=== PATIENT | male | born 1945 | race Caucasian/White ===

== ENCOUNTER 2016-10-04 12:43 | Emergency (ER) | payer MEDICARE ==
[~2016-10-04 12:43] MED LIST: AMBIEN PO; AMOXICILLIN PO; ASPIRIN PO; ASPIRIN81 M2 PO; CIPRO PO; COUMADIN; COUMADIN PO; COUMADIN4 MG PO; CRESTOR; FLAGYL PO; IRON1 TA1 PO; IRON325 ( 651 PO; LIPITOR PO; LIPITOR40 MG PO; NORVASC; PERCOCET5/325 PO; VICODIN 5/500 T1 TAB PO; WARFARIN SODIUM6 MG PO; ZYLOPRIM; ZYLOPRIM100 MG PO
[2016-10-04 13:00] LABS: BASOPHIL# 0.1 X10e3 (0-0.3); BASOPHIL% 0.5 % (0-2.5); EOSINOPHIL% 0.2 % (0.0-7.0); HEMATOCRIT 39.1 % (38.0-50.0); HEMOGLOBIN 13.5 gm/dL (13.0-16.0); LYMPHOCYTE# 0.8 X10e3 (1.0-3.5); LYMPHOCYTE% 7.1 % (17.0-45.0); MEAN CELL VOLUME 90.8 FL (83-96); MEAN CORPUSCULAR HEMOGLOBIN 31.4 PG (28-34); MEAN CORPUSCULAR HGB CONC 34.5 g/dL (30-36); MEAN PLATELET VOLUME 6.2 FL (6.5-11.5); MONOCYTE# 0.7 X10e3 (0-1.0); MONOCYTE% 6.5 % (3.0-12.0); NEUTROPHIL# 9.5 X10e3 (1.5-7.1); NEUTROPHIL% 85.7 % (40-75); PLATELET COUNT 237 X10e3 (140-420); RED BLOOD COUNT 4.31 X10e (3.90-5.60); RED CELL DISTRIBUTION WIDTH 13.3 % (11.0-15.5); WHITE BLOOD COUNT 11.1 X10e3 (4.0-10.5)
[2016-10-04 13:07] LABS: DIFF IND NO
[2016-10-04 13:16] LABS: PROTHROMBIN TIME (PATIENT) 57.5 SECONDS (9.5-12.4)
[2016-10-04 13:18] LABS: BLOOD UREA NITROGEN 35 mg/dL (9-23); BUN/CREATININE RATIO 29.16; CALCIUM SERUM 8.7 mg/dL (8.4-10.2); CARBON DIOXIDE 23 mmol/L (22-31); CHLORIDE 104 mmol/L (100-111); CREATININE SERUM 1.2 mg/dL (0.6-1.4); GLOM FILT RATE Estimated ABOVE60 mL/min (>60); GLUCOSE FASTING 116 mg/dL (70-110); POTASSIUM 4.5 mmol/L (3.5-5.1); SODIUM 135 mmol/L (135-145)
== END 2016-10-04 14:02 | disposition home or self-care (01) ==
LOC: SED 12:43
PROVIDERS: Emergency Medicine
DX: R04.0 Epistaxis (principal); Z90.49 Acquired absence of other specified parts of digestive tract; Z79.899 Other long term (current) drug therapy; Z87.891 Personal history of nicotine dependence
CPT/HCPCS: 36415; 80048; 85025; 85610; 99283